=== PATIENT | male | born 1955 | race Caucasian/White ===

== ENCOUNTER 2017-04-29 17:47 | Observation (INO) | payer SELFPAY ==
[~2017-04-29] VITALS: Ht 162.6 cm; Wt 79.0 kg
[2017-04-29 18:29] LABS: HEMATOCRIT 44.5 % (38.0-50.0); HEMOGLOBIN 15.8 G/DL (12.5-16.6); MCH 32.4 PG (29.0-34.0); MCHC 35.5 G/DL (30.0-36.0); MCV 91.4 FL (86-99); PLATELET COUNT 208 K/uL (156-360); RBC DIS.WIDTH-CV 11.9 % (11.8-14.6); RBC DIS.WIDTH-SD 40.3 % (39-53); RED BLOOD COUNT 4.87 M/uL (4.00-5.50); WHITE BLOOD COUNT 7.2 K/uL (4.1-10.2)
[2017-04-29 18:39] LABS: ALBUMIN 3.9 g/dL (3.2-4.8); CHLORIDE 105 mEq/L (99-109); POTASSIUM 4.5 mEq/L (3.7-5.4); SODIUM 142 mEq/L (136-147)
[2017-04-29 18:42] LABS: GLUCOSE 109 mg/dL (70-99); TOTAL PROTEIN 6.9 g/dL (6.4-8.3)
[2017-04-29 18:43] LABS: TOTAL BILIRUBIN 0.4 mg/dL (0.0-1.0)
[2017-04-29 18:45] LABS: ALKALINE PHOSPHATASE 98 IU/L (3-129); CREATININE 1.4 mg/dL (0.6-1.3); GFR ESTIMATE (CALCULATED) 54 mL/min/ (58.99-99999)
[2017-04-29 18:46] LABS: UREA NITROGEN (BUN) 24 mg/dL (9-23)
[2017-04-29 18:47] LABS: AST (GOT) 26 IU/L (2-34)
[2017-04-29 18:48] LABS: ALT (GPT) 26 IU/L (3-49)
[2017-04-29 18:51] LABS: TROP-I INTERPRETATION NEGATIVE; TROPONIN-I 0.04 ng/mL (0.0-0.30)
[2017-04-29] MEDS ORDERED: LISINOPRIL10 MG PO (21:13)
[2017-04-29] MEDS ORDERED: ASPIRIN325 MG PO (21:16)
[2017-04-29] MEDS ORDERED: ADVIL,NUPRIN,M200 MG PO (21:17)
[2017-04-29] MEDS ORDERED: PROAIR HFA8.5 GM IH (21:18)
[2017-04-30] VITALS: BP 134/83
[2017-04-30 00:56] LABS: TROP-I INTERPRETATION NEGATIVE; TROPONIN-I 0.03 ng/mL (0.0-0.30)
[2017-04-30 03:54] VITALS: BP 115/76
[2017-04-30 07:04] LABS: HEMATOCRIT 43.5 % (38.0-50.0); HEMOGLOBIN 14.9 G/DL (12.5-16.6); MCH 31.5 PG (29.0-34.0); MCHC 34.3 G/DL (30.0-36.0); PLATELET COUNT 194 K/uL (156-360); RBC DIS.WIDTH-CV 12.2 % (11.8-14.6); RBC DIS.WIDTH-SD 41.4 % (39-53); RED BLOOD COUNT 4.73 M/uL (4.00-5.50); WHITE BLOOD COUNT 6.3 K/uL (4.1-10.2)
[2017-04-30 07:25] LABS: TROP-I INTERPRETATION NEGATIVE; TROPONIN-I 0.03 ng/mL (0.0-0.30)
[2017-04-30 07:28] VITALS: BP 141/86
[2017-04-30 07:36] LABS: CHLORIDE 104 MEQ/L (99-109); CREATININE 1.3 MG/DL (0.6-1.3); GFR ESTIMATE (CALCULATED) > 59 mL/min/ (58.99-99999); GLUCOSE 112 mg/dL (70-99); SODIUM 139 MEQ/L (136-147); UREA NITROGEN (BUN) 23 mg/dL (9-23)
[2017-04-30] MEDS ORDERED: PREDNISONE10 MG PO (11:37)
[2017-04-30] MEDS ORDERED: LOSARTAN POTASS50 MG PO (11:37)
[2017-04-30] MEDS ORDERED: PROAIR HFA8.5 GM IH (11:37)
[2017-04-30] MEDS ORDERED: ASMANEX HFA13 G1 IH (11:37)
[2017-04-30 12:42] VITALS: BP 151/87
[2017-04-30 20:00] VITALS: BP 162/88
[2017-04-30 23:33] VITALS: BP 118/57
[2017-05-01 09:02] VITALS: BP 150/94
== END 2017-05-01 12:49 | disposition home or self-care (01) ==
LOC: EME 17:47 → EDOF 21:59 → 5WEST 21:59 → ENRESERV 22:04 → 5WEST 23:10 → ENPENDDIS 04-30 → 5WEST 05-01 12:49
PROVIDERS: Emergency Medicine; Hospitalist
DX: J44.1 Chronic obstructive pulmonary disease with (acute) exacerbation (principal); I16.0 Hypertensive urgency; I10 Essential (primary) hypertension; R07.89 Other chest pain; N17.9 Acute kidney failure, unspecified; T46.4X6A Underdosing of angiotensin-converting-enzyme inhibitors, initial encounter; R94.31 Abnormal electrocardiogram [ECG] [EKG]; Z82.49 Family history of ischemic heart disease and other diseases of the circulatory system; Z82.5 Family history of asthma and other chronic lower respiratory diseases; Z83.49 Family history of other endocrine, nutritional and metabolic diseases; Z79.82 Long term (current) use of aspirin
CPT/HCPCS: 71045; 80048; 80053; 83880; 84484; 85027; 93005; 93306; 94640; 94640 76; 99202; 99281; 99285; G0378; J1650; J7512

== ENCOUNTER → 2017-05-16 | Outpatient (CLI) | payer SELFPAY ==
[~2017-05-16] MED LIST: ADVIL,NUPRIN,M200 MG PO; ASMANEX HFA13 G1 IH; ASPIRIN325 MG PO; LISINOPRIL10 MG PO; LOSARTAN POTASS50 MG PO; PREDNISONE10 MG PO; PROAIR HFA8.5 GM IH
== END | disposition home or self-care (01) ==
LOC: RAD 08:43
DX: R93.41 Abnormal radiologic findings on diagnostic imaging of renal pelvis, ureter, or bladder (principal)
CPT/HCPCS: 76770